=== PATIENT | female | born 1955 | race Caucasian/White ===

== ENCOUNTER 2018-10-07 09:09 | Inpatient (IN) | payer MEDICARE, OTHER ==
[~2018-10-07 09:09] MED LIST: BUPIV. HCL 0.25% (2.5MG/ML)/EPI. (1:200,000) PF 30 ML VIAL IJ ONE; DEXAMETHASONE SODIUM PHOSPHATE 10 MG/ML VIAL ONE; ENOXAPARIN SODIUM 40 MG/0.4 ML DISP.SYRIN SQ ONE; FAMOTIDINE 20 MG/2 ML VIAL IV ONE; LACTATED RINGERS 1,000 ML IV.SOLN IV ONE; LEVALBUTEROL NEB 1.25 MG/3 ML VIAL.NEB NEB ONE; LIDOCAINE HCL 1% PF 300MG/30ML VIAL ONE; LIDOCAINE HCL 2% PF 100MG/5ML VIAL IJ ONE; MIDAZOLAM HCL 2 MG/2 ML VIAL ONE; ONDANSETRON HCL/PF 4 MG/ 2ML VIAL ONE; PROPOFOL 200 MG/20 ML VIAL IV ONE; ROCURONIUM BROMIDE 10 MG/ML 5ML VIAL ONE; SALINE FLUSH 10 ML DISP.SYRIN ONE; SEVOFLURANE 250 ML LIQUID IH ONE; SODIUM CHLORIDE IRRIG SOLUTION 3,000 ML IRRIG.SOLN IR ONE; SUGAMMADEX SODIUM 200 MG/2 ML VIAL IV ONE; ceFAZolin SODIUM 1 GM VIAL ONE; ePHEDrine SULFATE 50 MG/1 ML IVP ONE
[2018-10-07] MEDS ORDERED: ONDANSETRON HCL/PF 4 MG/ 2ML VIAL ONE (14:22)
[2018-10-07] MEDS ORDERED: NICOTINE 14mg PATCH.TD24 TD PRN (14:45)
--- NOTE | 2018-10-07 15:01 | History and Physical Report ---
History of Present Illnes - History of Present Illness Reason for Visit: S/P LSG History of Present Illness: Patient is a 62-year-old female who has tried multiple diets and exercise programs with no success. She has always struggled with her weight. She has tried many diet plans, diet pills, and walking and has not been able to keep it off. Patient and surgeon decided to proceed with gastric sleeve procedure. Procedure went well- patient will be admitted and monitored s/p surgical intervention. Patient has been on a liquid diet prior to surgery so she is a risk of dehydration s/p surgery. She will be admitted for IV hydration to help hydrate patient until she is able to tolerate a sufficient oral intake, will treat pain with IV medication until patient is able to tolerate oral meds, IV antiemetics to help reduce episodes of nausea and/or vomiting. Patient will be monitored closely using telemetry due cardiac history with EF 60% and monitor sleep pattern for Obstructive Sleep Apnea. Will monitor respiratory status due to asthma and daily use of inhaler. - Past Medical History Cardiac: HTN, Hyperlipidemia Pulmonary: Asthma, COPD, Sleep Apnea Gastrointestinal: GERD Psych: Bipolar Musculoskeletal: Chronic low back pain, Osteoarthritis Rheumatologic: Fibromyalgia Endocrine: obesity Grav: 4 Para: 3 Ab: 1 - Past Surgical History Past Surgical History: Appendectomy, (x2), Hysterectomy, Other (bladder stimulator, exp. surgery), Other (neck) - Past Family History Mother Family History: CAD, DM - Past Social History Smoke: 1 pack per day Alcohol: None Drugs: None Lives: With Family Domestic Violence: Negative - Health Maintenance Health Maintenance: Cholesterol, Influenza Vaccine, Mammogram Influenza Vaccine: Current for this Influenza Season Pneumonia Vaccine: Yes Resuscitation Status: Resusciation Status Resuscitation Status Full Code - Unable to Obtain History Unable to Obtain: No Review of Systems - Review of Systems Constitutional: negative: Fever, Chills Eyes: negative: conjunctivae inflammation, eyelid inflammation ENT: negative: Ear Pain, Nose Pain, Throat Pain Respiratory: SOB with Excertion. negative: Cough, Shortness of Breath Cardiovascular: negative: Chest Pain, Edema Gastrointestinal: Nausea, Abdominal Pain. negative: Vomiting Genitourinary: negative: Dysuria Musculoskeletal: Back Pain Skin: Other (incision sites x 5). negative: Rash Neurological: negative: Weakness, Confusion - Medications/Allergies Allergies/Adverse Reactions: Allergies Allergy/AdvReac Type Severity Reaction Status Date / Time No Known Allergies Allergy Verified 10/07/18 14:42 Home Medications: Home Medications Albuterol Sulfate [Proair HFA] 2 puff IH Q4 PRN 10/07/18 Atorvastatin Calcium [Lipitor] 80 mg PO DAILY 10/07/18 Baclofen 10 mg PO TID 10/07/18 Docusate Sodium [Colace] 100 mg PO BID 10/07/18 Duloxetine HCl [Cymbalta] 60 mg PO BID 10/07/18 Estradiol 0.5 mg PO DAILY 10/07/18 Fluticasone Propion/Salmeterol [Advair 250-50 Diskus] 1 each INH BID 10/07/18 Gabapentin 300 mg PO TID 10/07/18 HYDROcodone /APAP 5/325 [[place] 5/325] 1 each PO TID 10/07/18 Hydrochlorothiazide 25 mg PO DAILY 10/07/18 Lamotrigine [Lamictal] 25 mg PO DAILY 10/07/18 Lisinopril [Prinivil] 10 mg PO BID 10/07/18 Meloxicam [Mobic] 15 mg PO DAILY 10/07/18 Metoprolol Tartrate [Lopressor] 25 mg PO BID 10/07/18 Montelukast Sodium [Singulair] 10 mg PO DAILY 10/07/18 [place]-3 Acid Ethyl Esters [Lovaza] 1 gm PO BID 10/07/18 Rabeprazole Sodium [Aciphex] 20 mg PO DAILY 10/07/18 Tiotropium [place] [Spiriva] 18 mcg IH DAILY 10/07/18 Exam - Exam General: Alert, Oriented to Person, Oriented to Place, Oriented to Time, Cooperative, Moderate distress, Morbidly Obese HEENT: PERRLA, Nose Mucous membr. moist/[place] Neck: Normal Range of Motion Carotids: No bruit Lungs: Clear to auscultation, Normal air movement Cardiovascular: Regular rate, Normal S1, Normal S2 Peripheral Edema: None Peripheral Pulses: 2+ Abdomen: Soft, Decreased Bowel Sounds Integumentary: Warm, Dry, Pale, Other (incision sites x 5 dry/intact) Extremities: No edema, Normal pulses, No tenderness/swelling Neurological: Normal speech, Strength Equal Bilat, Sensation intact Psych/Mental Status: Mental status NL, Intact Judgment Assessment/Plan - Assessment/Plan (1) Status post gastric surgery Status: Acute Current Visit: Yes Plan: Plan to admit for IV hydration, IV pain meds, and IV antiemetics. Lovenox and SCDs to help prevent DVTs, IS and frequent ambulation will be implemented. Start ice chips and advance diet as tolerated. (2) Morbid obesity due to excess calories Status: Acute Current Visit: Yes Plan: Patient is s/p gastric sleeve. We will assist patient with implementing gastric sleeve diet protocol starting with ice chips and clear liquids and advancing as tolerated. (3) COPD (chronic obstructive pulmonary disease) Status: Acute Current Visit: Yes Qualifiers: COPD type: chronic bronchitis Plan: Will monitor lung status closely; will use inhalers; Incentive spirometry (4) Hypertension Status: Acute Current Visit: Yes Plan: Will monitor blood pressure closely; may implement blood pressure medication as needed once able to tolerate PO (5) Obstructive sleep apnea Status: Acute Current Visit: Yes Plan: Patient will use CPAP machine while hospitalized (6) GERD (gastroesophageal reflux disease) Status: Acute Current Visit: Yes Plan: Will implement Pepcid BId IV (7) Chronic low back pain Status: Acute Current Visit: Yes Plan: Will monitor closely; may implement K-pad (8) Osteoarthritis Status: Acute Current Visit: Yes Plan: Will monitor closely; start home meds once patient can tolerate PO; frequent ambulation VTE Assessment - RISK FACTOR SCORE VTE RISK FACTOR SCORES: AGE 40-60 YEARS, OBESITY, SMOKER, MAJOR SURGERY/ANESTHESIA TIME > 1 HOUR - RISK VTE HIGH RISK: SCORE OF 3-4 (RISK PROXIMAL DVT 4-8%) PROPHYLAXIS NEEDED (lovenox daily, SCDs while in bed, IS, frequent ambulation)
[2018-10-07] MEDS: 0.9 % SODIUM CHLORIDE 1,000 ML IV SCH (15:05)
[2018-10-07 15:06] VITALS: BMI 37.4
[2018-10-07] MEDS: MORPHINE SULFATE 4 MG/ML VIAL IVP PRN (15:17)
[2018-10-07] MEDS: PROMETHAZINE HCL 25 MG in 0.9 % SODIUM CHLORIDE 50 ML IV PRN (16:34)
[2018-10-07] MEDS: KETOROLAC TROMETHAMINE 30 MG/1ML VIAL IV PRN (18:54)
[2018-10-07] MEDS: ceFAZolin SODIUM 1 GM/50 ML PIGGYBACK IV SCH (22:07)
[2018-10-07] MEDS: FAMOTIDINE 20 MG/2 ML VIAL IVP SCH (22:08)
[2018-10-08] MEDS: 0.9 % SODIUM CHLORIDE 1,000 ML IV SCH ×3 (00:19→22:50)
[2018-10-08] MEDS: ONDANSETRON HCL/PF 4 MG/ 2ML VIAL IVP PRN ×2 (01:23→09:22)
[2018-10-08] MEDS: MORPHINE SULFATE 4 MG/ML VIAL IVP PRN ×2 (01:26→09:15)
[2018-10-08] MEDS ORDERED: PROMETHAZINE HCL 25 MG/ML VIAL ONE ×2 (05:06→21:30)
[2018-10-08] MEDS ORDERED: 0.9 % SODIUM CHLORIDE 50 ML IV ONE ×2 (05:06→21:30)
[2018-10-08 06:02] LABS: BASOPHILS % 0.2 % (0.0-1.5)
[2018-10-08 06:09] LABS: eGFR (Non-African) > 60
[2018-10-08] MEDS: ceFAZolin SODIUM 1 GM/50 ML PIGGYBACK IV SCH (06:24)
--- NOTE | 2018-10-08 06:34 | Inpatient Progress Note ---
Subjective - Required Recertification Statement I anticipate X number of days because-include discharge plan: 1 - Review of Systems Events since last encounter: Patient states that she had a fairly decent night. She had some nausea- vomiting- she was encouraged to sip her drinks and wait in between drinks- she states that her pain is tolerable and pain medications are helping. She has been up walking in the chu, wearing SCDs while in bed, and using Incentive Spirometry- incision sites are dry and intact. General: Denies: Chills, Night Sweats HEENT: Denies: Head Aches, Dysphasia Pulmonary: Denies: Dyspnea, Cough Cardiovascular: Denies: Chest Pain, Light Headedness Gastrointestinal: Nausea, Vomiting, Abdominal Pain Genitourinary: Denies: Dysuria Musculoskeletal: Denies: Back Pain Neurological: Denies: Weakness Objective - Exam Vitals and I&O: Vital Signs Temp 97.8 F 10/08/18 06:00 Pulse 76 10/08/18 06:00 Resp 14 10/08/18 06:00 BP 154/63 10/08/18 06:00 Pulse Ox 94 10/08/18 06:00 Intake & Output 10/07/18 10/07/18 10/08/18 11:59 23:59 11:59 Intake Total 0 Output Total 300 600 Balance -300 -600 Weight 105.233 kg Intake: IV 0 Left AC space 0 Oral 0 Output: Urine 300 600 Other: Voiding Method Toilet Toilet # Voids 1 # Bowel Movements 0 General: Alert, Oriented to Person, Oriented to Place, Oriented to Time, Cooperative, Moderate distress, Obese HEENT: PERRLA, Nose Mucous membr. moist/[place] Neck: Supple, +2 carotid pulse wo bruit Lungs: Clear to auscultation, Normal air movement Cardiovascular: Regular rate, Normal S1, Normal S2 Abdomen: Normal bowel sounds, Soft Extremities: No edema, Normal pulses, No tenderness/swelling Skin: Warm, Dry, Pale, Other (incisions are dry and intact) Neurological: Normal gait, Normal speech, Strength Equal Bilat, Sensation intact Psych/Mental Status: Mental status NL, Mood NL, Appropriate Affect, Intact Judgment - Results Results: Laboratory Results WBC 11.00 K/ul (4.00-12.00) 10/08/18 05:00 RBC 4.44 M/ul (3.90-5.20) 10/08/18 05:00 Hgb 12.8 g/dL (11.5-16.0) 10/08/18 05:00 Hct 38.0 % (34.5-46.5) 10/08/18 05:00 MCV 85.0 fl (80.0-100.0) 10/08/18 05:00 MCH 28.8 pg (28.0-34.0) 10/08/18 05:00 MCHC 33.7 g/dL (30.0-36.0) 10/08/18 05:00 RDW 12.6 % (11.3-14.3) 10/08/18 05:00 Plt Count 188 K/mm3 (130-400) 10/08/18 05:00 Neut % (Auto) 81.6 % (39.0-79.0) H 10/08/18 05:00 Lymph % (Auto) 13.2 % (16.0-50.0) L 10/08/18 05:00 [place] % (Auto) 4.1 % (0.0-11.0) 10/08/18 05:00 Eos % (Auto) 0.9 % (0.0-6.8) 10/08/18 05:00 Baso % (Auto) 0.2 % (0.0-1.5) 10/08/18 05:00 Neut # (Auto) 9.0 # k/uL (1.4-7.7) H 10/08/18 05:00 Lymph # (Auto) 1.5 # k/uL (0.6-4.0) 10/08/18 05:00 [place] # (Auto) 0.5 # k/uL (0.0-0.9) 10/08/18 05:00 Eos # (Auto) 0.1 # k/uL (0.0-0.6) 10/08/18 05:00 Baso # (Auto) 0.0 # k/uL (0.0-0.5) 10/08/18 05:00 Sodium 136 mmol/L (137-145) L 10/08/18 05:00 Potassium 4.2 mmol/L (3.5-5.1) 10/08/18 05:00 Chloride 104 mmol/L (98-107) 10/08/18 05:00 Carbon Dioxide 26 mmol/L (22-30) 10/08/18 05:00 BUN 12 mg/dL (7-17) 10/08/18 05:00 Creatinine 0.66 mg/dL (0.52-1.04) 10/08/18 05:00 Estimated Creat Clear 177 10/08/18 05:00 Est GFR ( Amer) > 60 (60-) 10/08/18 05:00 Est GFR (Non-Af Amer) > 60 (60-) 10/08/18 05:00 Glucose 137 mg/dL (74-106) H 10/08/18 05:00 Calcium 8.3 mg/dL (8.4-10.2) L 10/08/18 05:00 Total Bilirubin 0.4 mg/dL (0.2-1.3) 10/08/18 05:00 AST 26 U/L (15-46) 10/08/18 05:00 ALT 20 U/L (0-35) 10/08/18 05:00 Alkaline Phosphatase 51 U/L (38-126) 10/08/18 05:00 Total Protein 6.7 g/dL (6.3-8.2) 10/08/18 05:00 Albumin 3.8 g/dL (3.5-5.0) 10/08/18 05:00 Assessment/Plan - Assessment/Plan (1) Status post gastric surgery Status: Acute Assessment: Incision without redness or drainage, positive bowel sounds, minimal discomfort, belching and flatus, no extremity pain or edema, had some nausea with dry heaves Plan: Will continue to have patient ambulate frequently in the chu, wear SCDs while i n bed, frequent use of incentive spirometer, continue IVF until patient can take in sufficient oral intake- pt is tolerating po meds (2) Morbid obesity due to excess calories Status: Acute Assessment: Continuing with bariatric diet- patient had some nausea and dry heaves Plan: Will continue with clear liquid diet (3) COPD (chronic obstructive pulmonary disease) Status: Acute Qualifiers: COPD type: chronic bronchitis Assessment: LCTA Plan: May implement home meds as needed (4) Hypertension Status: Acute Assessment: Blood pressures are stable Plan: Will monitor blood pressures closely-and implement medications as needed (5) Obstructive sleep apnea Status: Acute Assessment: Stable with CPAP Plan: Will continue patient on CPAP (6) GERD (gastroesophageal reflux disease) Status: Acute Assessment: Nausea and vomiting noted Plan: Will continue on IV Zofran and Phenergan as needed (7) Chronic low back pain Status: Acute Assessment: Stable Plan: May use K-pad as needed (8) Osteoarthritis Status: Acute Assessment: Stable- will continue to ambulate Plan: Ambulation
[2018-10-08] MEDS: FAMOTIDINE 20 MG/2 ML VIAL IVP SCH ×2 (09:12→22:51)
[2018-10-08] MEDS: ENOXAPARIN SODIUM 40 MG/0.4 ML DISP.SYRIN SQ SCH (09:15)
[2018-10-08] MEDS: KETOROLAC TROMETHAMINE 30 MG/1ML VIAL IV PRN ×2 (11:36→21:32)
[2018-10-08] MEDS: HYDROcodone-ACETAMIN 7.5-325/15ML SOLN UD CUP PO PRN (17:05)
[2018-10-08] MEDS: PROMETHAZINE HCL 25 MG in 0.9 % SODIUM CHLORIDE 50 ML IV PRN (21:35)
[2018-10-09] MEDS: HYDROcodone-ACETAMIN 7.5-325/15ML SOLN UD CUP PO PRN ×2 (05:17→10:00)
[2018-10-09] MEDS: 0.9 % SODIUM CHLORIDE 1,000 ML IV SCH (05:21)
--- NOTE | 2018-10-09 06:55 | Discharge Summary ---
Discharge Summary - Discharge [facility] Admission Date: 10/07/18 Discharge Date: 10/09/18 History of Present Illness: Patient is a 62-year-old female who has tried multiple diets and exercise programs with no success. She has always struggled with her weight. She has tried many diet plans, diet pills, and walking and has not been able to keep it off. Patient and surgeon decided to proceed with gastric sleeve procedure. Procedure went well- patient will be admitted and monitored s/p surgical intervention. Patient has been on a liquid diet prior to surgery so she is a risk of dehydration s/p surgery. She will be admitted for IV hydration to help hydrate patient until she is able to tolerate a sufficient oral intake, will treat pain with IV medication until patient is able to tolerate oral meds, IV antiemetics to help reduce episodes of nausea and/or vomiting. Patient will be monitored closely using telemetry due cardiac history with EF 60% and monitor sleep pattern for Obstructive Sleep Apnea. Will monitor respiratory status due to asthma and daily use of inhaler. Condition at Discharge: Stable Home Medications: Ambulatory Orders Medication Instructions Recorded Albuterol Sulfate [Proair HFA] 2 puff IH Q4 PRN 10/07/18 Atorvastatin Calcium [Lipitor] 80 mg PO DAILY 10/07/18 Baclofen 10 mg PO TID 10/07/18 Docusate Sodium [Colace] 100 mg PO BID 10/07/18 Duloxetine HCl [Cymbalta] 60 mg PO BID 10/07/18 Estradiol 0.5 mg PO DAILY 10/07/18 Fluticasone Propion/Salmeterol 1 each INH BID 10/07/18 [Advair 250-50 Diskus] Gabapentin 300 mg PO TID 10/07/18 HYDROcodone /APAP 5/325 [[place] 1 each PO TID 10/07/18 5/325] Hydrochlorothiazide 25 mg PO DAILY 10/07/18 Lamotrigine [Lamictal] 25 mg PO DAILY 10/07/18 Lisinopril [Prinivil] 10 mg PO BID 10/07/18 Meloxicam [Mobic] 15 mg PO DAILY 10/07/18 Metoprolol Tartrate [Lopressor] 25 mg PO BID 10/07/18 Montelukast Sodium [Singulair] 10 mg PO DAILY 10/07/18 [place]-3 Acid Ethyl Esters [Lovaza] 1 gm PO BID 10/07/18 Rabeprazole Sodium [Aciphex] 20 mg PO DAILY 10/07/18 Tiotropium [place] [Spiriva] 18 mcg IH DAILY 10/07/18 Consultations this Visit: None Procedures this Visit: Other (S/P LSG) Allergies/Adverse Reactions: Allergies Allergy/AdvReac Type Severity Reaction Status Date / Time No Known Allergies Allergy Verified 10/07/18 14:42 Discharge Summary: Patient is a 62-year-old female that underwent the gastric sleeve procedure and has done well. She has been very cooperative with her care by ambulating frequently, using her incentive spirometer, and wearing her SCDs while in bed. She has been compliant with her diet during hospitalization. She is having minimal discomfort at this time and minimal nausea- she has is passing gas and belching. She is aware of discharge instructions and what she can and cannot do post surgical- she is aware of the strict diet she must follow to decrease discomfort and have success after procedure. She has family support and family will be taking her home- medications written by surgeon given to patient. She feels ready to go home. Hospital Course: Patient received IV pain medications, antiemetics, and IVF and was transitioned to oral. She has been up ambulating and using incentive spirometer. - Final Diagnosis (1) Status post gastric surgery Problems: Incision without redness or drainage, positive bowel sounds, minimal discomfort, belching and flatus, no extremity pain or edema Right or Left: Right (2) Morbid obesity due to excess calories Problems: Continue with bariatric sleeve diet- clear liquids today and start full liquids tomorrow Right or Left: Right (3) COPD (chronic obstructive pulmonary disease) Problems: Stable- continue with home meds Right or Left: Right (4) Hypertension Problems: Stable- monitor blood pressures daily- keep log and take to follow up appointment Right or Left: Right (5) Obstructive sleep apnea Problems: Stable- continue to wear CPAP Right or Left: Right (6) GERD (gastroesophageal reflux disease) Problems: Stable- continuing to take Prilosec Right or Left: Right (7) Chronic low back pain Problems: stable- continue to ambulate frequently Right or Left: Right (8) Osteoarthritis Problems: Stable- no NSAIDS Right or Left: Right
[2018-10-09 08:01] VITALS: BP 136/54
[2018-10-09] MEDS: FAMOTIDINE 20 MG/2 ML VIAL IVP SCH (09:07)
[2018-10-09] MEDS: ENOXAPARIN SODIUM 40 MG/0.4 ML DISP.SYRIN SQ SCH (09:07)
[2018-10-09] MEDS: ONDANSETRON HCL/PF 4 MG/ 2ML VIAL IVP PRN (09:55)
--- NOTE | 2018-10-12 06:52 | Operative Note ---
PREOPERATIVE DIAGNOSIS: 1. Morbid obesity. 2. Hypertension. 3. Arthritis. POSTOPERATIVE DIAGNOSIS: 1. Morbid obesity. 2. Hypertension. 3. Arthritis. PROCEDURES PERFORMED: 1. Laparoscopic vertical sleeve gastrectomy. 2. Upper gastrointestinal endoscopy. SURGEON: Vincent Jain M.D. INDICATIONS FOR PROCEDURE: Ms. Jennifer Pearson is a 62-year-old female who presented with features of morbid obesity. She was noted to have a weight of 240 with a BMI of 41 with the above-listed comorbidities. The patient was advised laparoscopic vertical sleeve gastrectomy and possible hiatal hernia repair. The patient showed understanding and agreed to proceed. DESCRIPTION OF PROCEDURE: After explaining to the patient in detail and informed consent was obtained, the patient was identified in the preoperative holding area. The patient was transferred to the operating room and was placed in supine position. Sequential compressive devices were placed for DVT prophylaxis. Preoperative antibiotics were given. After induction of anesthesia, the abdomen was prepped and draped in a sterile fashion. Through a left upper quadrant 1-cm incision, and using Optiview technique, the peritoneal cavity was entered and pneumoperitoneum was created. Thereafter, under direct vision, another 5-mm trocar was placed in the left midabdomen and another 15-mm trocar was placed in the right midabdomen. Through a 1-cm incision in the right subcostal region, another 5-mm trocar was placed. Through a 1-cm incision in the epigastrium, a Francisco Javier retractor was introduced and the left lobe of the liver was retracted. On initial inspection, the patient was noted to have no evidence of hiatal hernia. I took down the gastroepiploic vessels using a LigaSure. This was continued superiorly. The short gastric vessels were taken down. The gastrophrenic ligament was divided and the Angle of His was mobilized. The posterior attachments of the stomach on the pancreas were released. Distally, the gastroepiploic vessels were taken down up to about 4 cm proximal to the pylorus. At this point, a #38 [place] Hurst Bougie was introduced into the stomach and was placed along the lesser curve. The stomach was then divided in a vertical fashion with multiple Endo LISA Covidien Black Load Staplers. The first firing was directed outwards towards the greater curvature. Subsequent firings were directed towards the Angle of His to create a loose sleeve around the #38 [place] bougie. The bougie was then removed and an upper GI endoscopy was performed at this point. The scope was introduced into the esophagus and was gradually advanced into the stomach. The GE junction appeared normal. The sleeve size appeared normal. No evidence of any active bleeding was noted. The stomach was insufflated with air and irrigation of fluid along the staple line revealed no evidence of air leak. The stomach was then suctioned out and the scope was removed. Absolute hemostasis was ensured. Thorough saline irrigation was given. The Francisco Javier retractor was removed. Approximately 10 mL of a lidocaine- Marcaine mix was instilled under the left hemidiaphragm. The sleeve gastrectomy specimen was removed. The abdomen was then deflated. The incisions were closed with 4-0 Monocryl. Dermabond was applied. Approximately 10 mL of a lidocaine- Marcaine mix was injected into all the incisions. The patient was awakened from anesthesia and was transferred to the recovery room in stable condition. ESTIMATED BLOOD LOSS: Approximately 10 mL. CONDITION OF THE PATIENT: Stable. FLUIDS GIVEN: Per Anesthesia note. SPECIMEN(S) SENT: Sleeve gastrectomy specimen. COMPLICATIONS: None. ANESTHESIA: General. Vincent Jain M.D. BLAKE/wei (Please copy [facility] provider when applicable) Job #[id number] [place]
== END 2018-10-09 10:15 | disposition home or self-care (01) | DRG 621 ==
LOC: OPSURG 09:09 → SOUTH 09:10 → UNDOADMIN 14:35 → UNDODISIN 10-09 10:15
PROVIDERS: ADMIT Nurse Practitioner Family; ATTEND Nurse Practitioner Family
PROC: 0DB64Z3 Excision of Stomach, Percutaneous Endoscopic Approach, Vertical (ICD-10-PCS; principal; 2018-10-07)
DX: E66.01 Morbid (severe) obesity due to excess calories (principal); K21.9 Gastro-esophageal reflux disease without esophagitis; M19.90 Unspecified osteoarthritis, unspecified site; J44.9 Chronic obstructive pulmonary disease, unspecified; G47.33 Obstructive sleep apnea (adult) (pediatric); E78.00 Pure hypercholesterolemia, unspecified; I11.9 Hypertensive heart disease without heart failure; K58.9 Irritable bowel syndrome, unspecified; G89.29 Other chronic pain; M25.562 Pain in left knee; F17.210 Nicotine dependence, cigarettes, uncomplicated; M25.561 Pain in right knee; E78.5 Hyperlipidemia, unspecified; M54.5 Low back pain; M79.7 Fibromyalgia; Z68.41 Body mass index [BMI] 40.0-44.9, adult; Z79.899 Other long term (current) drug therapy; Z79.51 Long term (current) use of inhaled steroids; Z83.3 Family history of diabetes mellitus; Z82.49 Family history of ischemic heart disease and other diseases of the circulatory system; Z90.710 Acquired absence of both cervix and uterus; Z91.5 Personal history of self-harm; Z87.01 Personal history of pneumonia (recurrent); Z90.49 Acquired absence of other specified parts of digestive tract; Z79.890 Hormone replacement therapy; Z79.1 Long term (current) use of non-steroidal anti-inflammatories (NSAID)
CPT/HCPCS: 43235; 80053; 85025; 99221; 99231; 99232; 99238; J0690; J1650; J1885; J2001; J2250; J2270; J2405; J2550; J2704; J7614; 43775; A9270-GY; J7030; J7120